=== PATIENT | male | born 1960 | race Caucasian/White ===

== ENCOUNTER 2024-06-06 12:57 | Emergency (ER) | payer OTHER ==
[~2024-06-06] VITALS: Ht 170.2 cm; Wt 81.6 kg
[2024-06-06 13:03] VITALS: BP_SYST 138; PULSE 87; RESP 16; TEMP 97.7; O2SAT 95
[2024-06-06 14:11] LABS: BASOPHILS % (AUTO) 0.2 % (0.0-2.0); EOSINOPHILS # (AUTO) 0.1 K/uL (0.0-0.4); EOSINOPHILS % (AUTO) 2.2 % (0.0-4.0); HEMOGLOBIN 13.4 g/dL (14.0-18.0); LYMPHOCYTES # (AUTO) 1.4 K/uL (1.0-5.5); LYMPHOCYTES % (AUTO) 20.6 % (20.5-51.5); MEAN CORPUSCULAR HEMOGLOBIN 33 pg (27-31); MEAN CORPUSCULAR HGB CONC 34 % (32-36); MEAN CORPUSCULAR VOLUME 95 fL (79.0-98.0); MONOCYTES # (AUTO) 0.7 K/uL (0.0-1.0); MONOCYTES % (AUTO) 10.2 % (1.7-9.3); NEUTROPHILS # (AUTO) 4.6 K/uL (1.8-7.7); NEUTROPHILS % (AUTO) 66.8 % (40.0-70.0); PLATELET COUNT (AUTO) 171 K/uL (130-430); RED BLOOD CELL COUNT(AUTO) 4.12 MIL/uL (4.2-6.2); RED CELL DISTRIBUTION WIDTH 13.6 % (9.0-15.0); WHITE BLOOD COUNT (AUTO) 6.9 K/uL (4.8-10.8)
[2024-06-06 14:20] LABS: CALCIUM 8.7 mg/dL (8.4-11.0); CREATININE 1.08 mg/dL (0.55-1.30); POTASSIUM 4.5 mmol/L (3.5-5.1); URIC ACID 6.3 mg/dL (2.4-7.0)
[2024-06-06] MEDS ORDERED: CEPH250C PO (15:23)
[2024-06-06 15:42] VITALS: BP_SYST 135; PULSE 78; RESP 18; TEMP 97.6; O2SAT 98
== END 2024-06-06 15:26 | disposition home or self-care (01) ==
LOC: SED 12:57
DX: L03.115 Cellulitis of right lower limb (principal); Z98.890 Other specified postprocedural states
CPT/HCPCS: 36415; 80048; 83605; 84550; 85025; 87040; 93971; 99284